=== PATIENT | male | born 1985 | race American Indian/Alaskan Native ===

== ENCOUNTER 2016-08-08 13:53 | Emergency (ER) | payer MEDICAID ==
[~2016-08-08] VITALS: Ht 177.8 cm; Wt 102.1 kg
[2016-08-08 14:12] VITALS: BP 172/141
== END 2016-08-08 15:19 | disposition home or self-care (01) ==
LOC: ER 13:57
DX: L08.9 Local infection of the skin and subcutaneous tissue, unspecified (principal); I10 Essential (primary) hypertension; L01.00 Impetigo, unspecified

== ENCOUNTER 2021-01-31 13:32 | Emergency (ER) | payer MEDICAID ==
[~2021-01-31] VITALS: Ht 177.8 cm; Wt 97.5 kg
[2021-01-31 14:01] VITALS: BP 230/134
[2021-01-31] MEDS ORDERED: cloNIDine HCL 0.1 MG TAB PO ONE (15:15)
[2021-01-31 15:50] LABS: Basophils # (auto) 0 10 ^3/uL (0-0.2); Basophils % (auto) 0.3 % (0.0-2.0); Eosinophils # (auto) 0.1 10 ^3/uL (0-0.8); Eosinophils % (auto) 0.6 % (0.0-7.0); Hematocrit 48.5 % (41.0-53.0); Hemoglobin 16.4 g/dL (13.5-17.5); Lymphocytes # (auto) 1.2 10 ^3/uL (0.4-5.4); Lymphocytes % (auto) 13.6 % (10.0-50.0); Mean Corpuscular Hemoglobin 31.6 pg (28.0-32.0); Mean Corpuscular Hgb Conc. 33.8 g/dL (32.0-36.0); Mean Corpuscular Volume 93.3 fL (80.0-100.0); Monocytes # (auto) 0.5 10 ^3/uL (0-1.3); Monocytes % (auto) 5.9 % (0.0-12.0); Neutrophils # (auto) 6.9 10 ^3/uL (1.6-8.6); Neutrophils % (auto) 79.6 % (37.0-80.0); Nucleated Red Blood Cells % 0.1 %; Red Blood Cells 5.19 10^6/uL (4.5-5.90); Red Cell Distribution Width 13.1 % (11.8-14.3); White Blood Cell 8.7 10^3/uL (4.4-10.8)
[2021-01-31 16:07] LABS: Salicylate < 1.7 mg/dL (2.8-20.0)
[2021-01-31 16:08] LABS: Alanine Aminotransferase 58 U/L (16-61); Albumin 3.8 g/dL (3.4-5.0); Anion Gap 4 (5-15); Blood Urea Nitrogen 16 mg/dL (7-18); Calcium 9.3 mg/dL (8.5-10.1); Carbon Dioxide 27 mmol/L (21-32); Chloride 107 mmol/L (98-107); Glucose 104 mg/dL (74-106); Magnesium 2.6 mg/dL (1.6-2.6); Potassium 3.7 mmol/L (3.5-5.1); Sodium 138 mmol/L (136-145)
[2021-01-31 16:10] LABS: Alkaline Phosphatase 75 U/L (45-117); Aspartate Aminotransferase 27 U/L (15-37); BUN/Creatinine Ratio 19.3; Bilirubin, Total 0.6 mg/dL (0.2-1.0); GFR African American 136 mL/min; GFR Non-African American 113 mL/min
[2021-01-31 16:24] LABS: Acetaminophen < 2.0 ug/mL (10-30); Blood Alcohol < 3.0 mg/dL (0-5)
== END 2021-01-31 21:00 | disposition left against medical advice (07) ==
LOC: ER 13:32 → EDBD 13:32 → ER 21:00
DX: M79.10 Myalgia, unspecified site (principal); R10.9 Unspecified abdominal pain; Z53.29 Procedure and treatment not carried out because of patient's decision for other reasons
CPT/HCPCS: 36415; 80053; 80307; 80320; 80329; 81001; 83735; 85025; 93005